=== PATIENT | male | born 1980 | race Caucasian/White ===

== ENCOUNTER 2025-03-09 08:19 | Outpatient (CLI) | payer OTHER, SELFPAY | END 2025-03-09 08:20 | disposition home or self-care (01) | LOC: SLEEP 08:22 | PROVIDERS: Family Provider Urology; PCP Electrodiagnostic Medicine; Visit Provider Electrodiagnostic Medicine | DX: G47.33 Obstructive sleep apnea (adult) (pediatric) (principal) | CPT/HCPCS: G0399 ==